=== PATIENT | female | born 1985 | race Caucasian/White ===

== ENCOUNTER 2020-08-18 01:33 | Emergency (ER) | payer MEDICAID ==
[~2020-08-18] VITALS: Ht 152.4 cm; Wt 74.6 kg
[~2020-08-18 01:33] MED LIST: IBUP-974 PO
[2020-08-18 01:44] VITALS: BP 129/93
--- NOTE | 2020-08-18 01:51 | NUR ---
PT TAKEN TO BED 4
--- NOTE | 2020-08-18 01:56 | NUR ---
34 Y/O FEMALE C/O OF RT EYE SWELLING X1 DAY. PT DENIES PAIN AT THIS TIME, STATES DISCOMFORT. PT STATES IT WAS ITCHY AND BURNING BUT HAS SINCE GONE AWAY. PT STATES SHE HAD A STYE ON SAME EYE 2 WEEKS AGO. DENIES ANY TRAUMA. 600 MG IBUPROFEN TAKEN AT 1900. REDNESS NOTED TO RT EYE. R/L EYES 4MM BILAT PERRLA. MED HX: C SECTION ON 07/02/20 RX: DENIES NKA
--- NOTE | 2020-08-18 02:35 | NUR ---
Dr. Bella examining patient.
--- NOTE | 2020-08-18 02:35 | NUR ---
trudi jimenez at bedside evaluating pt.
[2020-08-18 02:49] VITALS: BP 129/93
--- NOTE | 2020-08-18 02:49 | NUR ---
Patient discharged with v/s stable. Written and verbal after care instructions given and explained. Patient verbalized understanding. Ambulatory with steady gait. ID Band Removed. All questions addressed prior to discharge. Advised to follow up with PMD.
== END 2020-08-18 02:49 | disposition home or self-care (01) ==
LOC: MED 01:33
DX: H10.211 Acute toxic conjunctivitis, right eye (principal); Z79.899 Other long term (current) drug therapy
CPT/HCPCS: 99281

== ENCOUNTER 2024-06-19 13:11 | Emergency (ER) | payer MEDICAID ==
[~2024-06-19] VITALS: Ht 152.4 cm; Wt 88.9 kg
[2024-06-19 13:17] VITALS: BP 138/85; PULSE 84; RESP 18; TEMP 97.3; O2SAT 98
[2024-06-19 14:04] LABS: BASOPHILS # (AUTO) 0.1 K/uL (0.00-0.22); BASOPHILS % (AUTO) 0.7 % (0.0-2.0); EOSINOPHILS # (AUTO) 0.1 K/uL (0-0.4); EOSINOPHILS % (AUTO) 1.4 % (0.0-4.0); HEMATOCRIT 32.3 % (36-48); LYMPHOCYTES # (AUTO) 1.6 K/uL (2.5-16.5); LYMPHOCYTES % (AUTO) 19.3 % (20.5-51.1); MEAN CORPUSCULAR HEMOGLOBIN 22 pg (27-31); MEAN CORPUSCULAR HGB CONC 31 g/dL (33-37); MEAN CORPUSCULAR VOLUME 70.4 fL (80-94); MONOCYTES # (AUTO) 0.6 K/uL (0.8-1.0); MONOCYTES % (AUTO) 7.7 % (1.7-9.3); NEUTROPHILS # (AUTO) 5.9 K/uL (1.8-7.7); NEUTROPHILS % (AUTO) 70.9 % (42.2-75.2); PLATELET COUNT (AUTO) 230 K/uL (140-450); RED BLOOD CELL COUNT(AUTO) 4.59 MIL/uL (4.20-5.40); RED CELL DISTRIBUTION WIDTH 18.1 % (11.6-13.7); WHITE BLOOD COUNT (AUTO) 8.3 K/uL (4.8-10.8)
[2024-06-19 14:18] LABS: ANION GAP 12.9 (8-16); CALCIUM 8.8 mg/dL (8.5-10.1); CARBON DIOXIDE 24.8 mmol/L (21-32); CREATININE 0.8 mg/dL (0.6-1.3); POTASSIUM 3.7 mmol/L (3.5-5.1)
[2024-06-19 14:25] LABS: ALBUMIN 3.4 g/dL (3.4-5.0); BILIRUBIN,DIRECT 0.1 mg/dL (0.0-0.3); TOTAL BILIRUBIN 0.3 mg/dL (0.0-1.0); TOTAL PROTEIN, SERUM 7.6 g/dL (6.4-8.2)
[2024-06-19 14:42] LABS: APPEARANCE,URINE CLEAR (CLEAR); BILIRUBIN,URINE NEGATIVE (NEGATIVE); BLOOD, URINE NEGATIVE (NEGATIVE); COLOR,URINE YELLOW (YELLOW); LEUKOCYTE ESTERASE ,URINE NEGATIVE (NEGATIVE); NITRITE, URINE POSITIVE (NEGATIVE); PH,URINE 6.5 (5.0-9.0); PROTEIN,URINE NEGATIVE (NEGATIVE); UGLUCOSE NEGATIVE (NEGATIVE); UROBILINOGEN,URINE 0.2 EU/dL (0.2 - 1)
[2024-06-19 14:57] LABS: BACTERIA,URINE 10-30 (MOD) /HPF (None Seen); RBC,URINE 0-5 /HPF (0-5); SQUAMOUS EPITHELIAL CELL,UR 0-3 (FEW) /LPF (0-3 (FEW)); WBC,URINE 0-5 /HPF (0-5)
[2024-06-19] MEDS ORDERED: IBUP-2213 PO (15:24)
[2024-06-19] MEDS ORDERED: CEPH-588 PO (15:27)
[2024-06-19] MEDS: KETOROLAC 30 MG/ML VIAL IM ONE (15:41)
== END 2024-06-19 15:47 | disposition home or self-care (01) ==
LOC: MED 13:11
DX: N30.00 Acute cystitis without hematuria (principal); Z79.899 Other long term (current) drug therapy; Z98.890 Other specified postprocedural states
CPT/HCPCS: 36415; 76856; 80048; 80076; 81001; 81025; 85025; 87086; 87186; 93976; 96372; 99285; J1885